=== PATIENT | female | born 1980 | race Caucasian/White ===

== ENCOUNTER → 2018-10-28 | Outpatient (CLI) | payer BC ==
[2006-01-11 07:36] VITALS: TEMP 98.3
[~2018-10-28] MED LIST: FERROUS SU325 MG/TAB PO; PRENATAL VITAMI1 TA5 PO
== END ==
LOC: MC.RAD 08:39
DX: Z12.31 Encounter for screening mammogram for malignant neoplasm of breast (principal); N63.11 Unspecified lump in the right breast, upper outer quadrant; Z85.3 Personal history of malignant neoplasm of breast

== ENCOUNTER → 2018-11-06 | Outpatient (CLI) | payer BC ==
[2006-01-11 07:36] VITALS: TEMP 98.3
== END ==
LOC: MC.RAD 08:58
DX: N60.01 Solitary cyst of right breast (principal); Z85.3 Personal history of malignant neoplasm of breast

== ENCOUNTER → 2019-11-06 | Outpatient (CLI) | payer BC ==
[2006-01-11 07:36] VITALS: TEMP 98.3
== END ==
LOC: MC.RAD 11:30
DX: Z12.31 Encounter for screening mammogram for malignant neoplasm of breast (principal)

== ENCOUNTER → 2020-08-08 | Outpatient (CLI) | payer BC ==
[2006-01-11 07:36] VITALS: TEMP 98.3
== END ==
LOC: MC.RAD 07:30
DX: N60.01 Solitary cyst of right breast (principal)

== ENCOUNTER → 2022-02-15 | Outpatient (CLI) | payer BC ==
[2006-01-11 07:36] VITALS: TEMP 98.3
== END ==
LOC: MC.RAD 01-17 07:00
DX: Z12.31 Encounter for screening mammogram for malignant neoplasm of breast (principal); N63.20 Unspecified lump in the left breast, unspecified quadrant

== ENCOUNTER → 2022-02-22 | Outpatient (CLI) | payer BC ==
[2006-01-11 07:36] VITALS: TEMP 98.3
== END ==
LOC: MC.RAD 09:15
DX: N63.20 Unspecified lump in the left breast, unspecified quadrant (principal)

== ENCOUNTER → 2022-03-13 | Outpatient (CLI) | payer BC ==
[2006-01-11 07:36] VITALS: TEMP 98.3
== END ==
LOC: MC.RAD 07:49
DX: N60.02 Solitary cyst of left breast (principal)

== ENCOUNTER → 2024-06-17 | Outpatient (CLI) | payer BC ==
[2006-01-11 07:36] VITALS: BP 104/66; PULSE 62; TEMP 98.3
== END ==
LOC: MC.RAD 10:55
DX: Z12.31 Encounter for screening mammogram for malignant neoplasm of breast (principal); N60.01 Solitary cyst of right breast